=== PATIENT | male | born 1990 | race African-American/Black ===

== ENCOUNTER 2018-12-14 22:38 | Emergency (ER) | payer SELFPAY ==
[~2018-12-14] VITALS: Ht 167.6 cm; Wt 81.8 kg
[2018-12-14 22:42] VITALS: BP 116/84
[2018-12-14] MEDS ORDERED: ACETAMINOPHEN 500 MG TABLET PO ONE (23:00)
[2018-12-14 23:32] LABS: INFLUENZA TYPE A NEGATIVE FOR TYPE A (NEGATIVE); INFLUENZA TYPE B NEGATIVE FOR TYPE B (NEGATIVE)
[2018-12-15] MEDS ORDERED: ACETAMINOPHEN 325 MG TABLET PO ONE
== END 2018-12-15 | disposition left against medical advice (07) ==
LOC: EMS 22:38
DX: R11.2 Nausea with vomiting, unspecified (principal); Z53.21 Procedure and treatment not carried out due to patient leaving prior to being seen by health care provider
CPT/HCPCS: 87804